=== PATIENT | male | born 1995 | race Hispanic/Latino ===

== ENCOUNTER 2017-04-09 12:01 | Observation (INO) | payer MEDICAID ==
[2017-04-09 12:09] VITALS: BMI 18.2
[2017-04-09 12:12] VITALS: TEMP 98.5
[2017-04-09] MEDS ORDERED: Magnesium Citrate Oral SOL (300 ml) PO ONE (13:33)
[2017-04-09 13:45] LABS: ADD MANUAL DIFF? NO
[2017-04-09 13:49] LABS: BASO # 0.02 K/mm3 (0.0-2.0); BASO % 0.3 % (0.0-3.0); EOS # 0.1 (0.0-0.7); EOS % 1.6 % (1.5-5.0); GRAN # 4.84 (1.4-6.5); GRAN % 70.5 % (50.0-68.0); HEMATOCRIT 44.4 % (42.0-52.0); LYMPH # 1.4 (1.2-3.4); LYMPH % 20.3 % (22.0-35.0); MEAN CELL VOLUME 89.3 fL (80.0-105.0); MEAN CORPUSCULAR HEMOGLOBIN 31.2 pg (25.0-35.0); MEAN CORPUSCULAR HGB CONC 34.9 g/dl (31.0-37.0); MEAN PLATELET VOLUME 11.6 fl (7.0-11.0); MONO # 0.5 (0.1-0.6); MONO % 7.3 % (1.0-6.0); PLATELET COUNT 163 10^3/uL (120.0-450.0); RED CELL DISTRIBUTION WIDTH 12.5 % (11.5-14.5); WHITE BLOOD COUNT 6.9 10^3/ul (4.5-11.0)
--- NOTE | 2017-04-09 13:50 | ED PDOC ---
"Arrival/HPI - General Chief Complaint: GI Problem Time Seen by Provider: 04/09/17 12:01 Historian: Patient - History of Present Illness Narrative History of Present Illness (Text): 04/09/17 12:01 Thaddeus Kelley is a 21 year old male who presents to the emergency department complaining of RLQ pain for 4-5 days. Patient states that his symptoms were relieved with a bowel movement. At present, patient feels much better but is still symptomatic. Patient notes that he does not usually have constipation. Patient denies any nausea, vomiting, or any other complaints. PMD: None Time/Duration: < week Symptom Onset: Gradual Symptom Course: Unchanged Severity Level: Mild Activities at Onset: Rest Context: Home Past Medical History - Provider Review Nursing Documentation Reviewed: Yes - Past History Past History: No Previous - Infectious Disease Hx of Infectious Diseases: None - Tetanus Immunization Tetanus Immunization: Up to Date - Past Medical History Past Medical History: No Previous - Psychiatric Hx Depression: No Hx Emotional Abuse: No Hx Physical Abuse: No Hx Substance Use: No - Past Surgical History Past Surgical History: No Previous - Anesthesia Hx Anesthesia: No - Suicidal Assessment Feels Threatened In Home Enviroment: No Family/Social History - Physician Review Nursing Documentation Reviewed: Yes Smoking Status: Never Smoked Hx Alcohol Use: No Hx Substance Use: No Hx Substance Use Treatment: No Allergies/Home Meds Allergies/Adverse Reactions: Allergies No Known Allergies Allergy (Verified 04/09/17 12:09) Home Medications: Home Meds Medication Instructions Recorded Confirmed No Known Home Med [No Known Home 04/12/14 04/09/17 Med] Physical Exam - Physical Exam Narrative Physical Exam (Text): - Review of Systems Constitutional: Normal. absent: Fatigue, Weight Change, Fevers Eyes: Normal ENT: Normal Respiratory: Normal absent: SOB, Cough, Sputum Cardiovascular: Normal absent: Chest pain, Palpitations, Syncope Gastrointestinal: RLQ pain. absent: Diarrhea, Nausea, Vomiting Genitourinary: Normal. absent: Dysuria, Frequency, Hematuria Musculoskeletal: Normal. absent: Arthralgias, Back Pain, Neck Pain Skin: Normal Neurological: Normal absent: Focal Weakness Endocrine: Normal Hemo/Lymphatic: Normal Psychiatric: Normal - Physical exam Patient appears age appropriate, speaking full sentences without difficulty - Systems Exam Head: Present: Atraumatic, Normocephalic Pupils: Present: PERRL Extraocular Muscles: Present: EOMI Conjunctiva: Present: Normal Mouth: Present: Moist Mucous Membranes Neck: Present: Normal Range of Motion. No: MIDLINE TENDERNESS, Paraspinal Tenderness Respiratory/Chest: Present: Clear to Auscultation, Good Air Exchange. No: Respiratory Distress, Accessory Muscle Use, Tachypneic Cardiovascular: Present: Regular Rate and Rhythm, Normal S1, S2, Peripheral Pulses Present. No: Murmurs Abdomen: Present: Normal Bowel Sounds, No: Tenderness, Peritoneal Signs, Rebound, Guarding, Distention Back: Present: Normal Inspection. No: Midline Tenderness, Paraspinal Tenderness Upper Extremity: Present: Normal Inspection. No: Cyanosis, Edema Lower Extremity: Present: Normal Inspection. No: Edema Neurological: Present: GCS=15, Speech Normal, cranial nerves II through XII fully intact with no cerebellar abnormality, neuro-sensory fully intact. No focal neurological deficits. Skin: Present: Warm, Dry, Normal Color. No: Rashes Lymphatic: Present: OX3, NI, NC Psychiatric: Present: Alert, Oriented x 3, Normal Insight, Normal Concentration Vital Signs Temp Pulse Resp BP Pulse Ox 04/09/17 16:29 55 L 20 126/68 100 04/09/17 16:02 70 18 126/68 100 04/09/17 12:11 98.5 F 72 19 110/73 99 Medical Decision Making - Lab Interpretations Lab Results: 04/09/17 13:30 04/09/17 13:30 Lab Results 04/09/17 13:30: Sodium 141, Potassium 4.4, Chloride 102, Carbon Dioxide 28, Anion Gap 15, BUN 15, Creatinine 0.7, Est GFR ( Amer) > 60, Est GFR (Non- Af Amer) > 60, Random Glucose 88, Calcium 9.8, Total Bilirubin 0.9, AST 26, ALT 35, Alkaline Phosphatase 73, Total Protein 8.3, Albumin 4.6, Globulin 3.7, Albumin/Globulin Ratio 1.2, Lipase 38 04/09/17 13:30: PT 12.0 H, INR 1.11 H, APTT 31.3 H 04/09/17 13:30: WBC 6.9 D, RBC 4.97, Hgb 15.5, Hct 44.4, MCV 89.3, MCH 31.2, MCHC 34.9, RDW 12.5, Plt Count 163, MPV 11.6 H, Gran % 70.5 H, Lymph % (Auto) 20.3 L, [place] % (Auto) 7.3 H, Eos % (Auto) 1.6, Baso % (Auto) 0.3, Gran # 4.84, Lymph # 1.4, [place] # 0.5, Eos # 0.1, Baso # 0.02 - Medication Orders Current Medication Orders: Discontinued Medications Iodixanol (Visipaque 320 Mg/Ml 100 Ml) Confirm Administered Dose 1,000 ml IV .STK-MED ONE Stop: 04/09/17 17:26 Iohexol (Omnipaque 240 (50 Ml)) Confirm Administered Dose 50 ml .ROUTE .STK-MED ONE Stop: 04/09/17 14:08 Iohexol (Omnipaque 350 100 Ml) Confirm Administered Dose 350 mg .ROUTE .STK-MED ONE Stop: 04/09/17 14:08 Magnesium Citrate (Citrate Of Mag) 300 ml PO ONCE ONE Stop: 04/09/17 13:34 Last Admin: 04/09/17 13:42 Dose: 300 ml ED OBSERVATION Discharge: Yes Date of observation admission: 04/09/17 Time of observation admission: 12:00 - Observation admission statement Patient is being placed in observation because:: Impression: 21 year old male complaining of RLQ pain for 4-5 days. Differential Diagnosis include but are not limited to: Constipation vs. Appendicitis vs. Adenitis - Goals of Observation Goals of observation are:: Plan: -- Abdomen and Pelvis CT -- Labs -- Citrate of Magnesium -- Reassess and Disposition Prior Visits: Notes and results from previous visits were reviewed. Patient last seen in ED on 01/08/15 for abnormal EKG that day. Patient was discharged home. - Progress Note Progress Note: 04/09/17 16:46 On reevaluation, patient states he feels better. He states he had a bowel movement. 04/09/17 18:16 On reevaluation, patient reports that she feels much better and would like to be discharged home. Patient's repeat abdominal exam is soft, nontender, non distended with positive bowel sounds in all 4 quadrants and no peritoneal signs. Patient is tolerating PO without any difficulty. Pt states he understands to return to the ER right away for new or worsening symptoms or for inability to f/u with PMD or specialist as instructed. Patient states that he fully agrees with and understands discharge instructions. States that he agrees with the plan and disposition. Verbalized and repeated discharge instructions and plan. I have given the patient opportunity to ask any additional questions. CT Abd Pelvis FINDINGS: Lower thorax: No acute findings. ABDOMEN: Liver: Unremarkable. No mass. Gallbladder and bile ducts: Unremarkable. No calcified stones. No ductal dilation. Pancreas: Unremarkable. No mass. No ductal dilation. Spleen: Unremarkable. No splenomegaly. Adrenals: Unremarkable. No mass. Kidneys and ureters: Unremarkable. No solid mass. No hydronephrosis. Stomach and bowel: Unremarkable. No obstruction. No mucosal thickening. Appendix: The appendix is not definitely identified. No secondary signs of acute appendicitis noted. PELVIS: THADDEUS KELLEY | Preliminary Radiology Report Bladder: Bladder not well distended. Reproductive: Unremarkable as visualized. ABDOMEN and PELVIS: Intraperitoneal space: Unremarkable. No free air. No significant fluid collection. Bones/joints: No acute fracture. No dislocation. Soft tissues: Unremarkable. Vasculature: Unremarkable. No abdominal aortic aneurysm. Lymph nodes: Unremarkable. No enlarged lymph nodes. IMPRESSION: No evidence for acute abnormality. Preliminary interpretation is based on receipt of 1342 image(s). A final report will be issued subsequently. We appreciate the opportunity to be involved in this patient's care. Thank you for allowing us to participate in the care of your patient. Dictated and Authenticated by: Amena Carty MD - Ulisses Statement The provider has reviewed the documentation as recorded by the Ulisses Waggoner Provider Scribe Attestation: All medical record entries made by the Scribe were at my direction and personally dictated by me. I have reviewed the chart and agree that the record accurately reflects my personal performance of the history, physical exam, medical decision making, and the department course for this patient. I have also personally directed, reviewed, and agree with the discharge instructions and disposition. Disposition/Present on Arrival - Present on Arrival Any Indicators Present on Arrival: No History of DVT/PE: No History of Uncontrolled Diabetes: No Urinary Catheter: No History of Decub. Ulcer: No History Surgical Site Infection Following: None - Disposition Have Diagnosis and Disposition been Completed?: Yes Diagnosis: Abdominal pain Disposition: HOME/ ROUTINE Disposition Time: 12:00 Patient Plan: Discharge Condition: GOOD"
[2017-04-09 13:58] LABS: ALB/GLOB RATIO 1.2 (1.1-1.8); ALKALINE PHOSPHATASE 73 U/L (38-133); ALT/SGPT 35 U/L (7-56); AST/SGOT 26 U/L (15-59); BILIRUBIN,TOTAL 0.9 mg/dL (0.2-1.3); BLOOD UREA NITROGEN 15 mg/dL (7-21); CALCIUM 9.8 mg/dL (8.4-10.5); CARBON DIOXIDE 28 mmol/L (21-33); CHLORIDE 102 mmol/L (98-107); GFR AFRICAN-AMERICAN > 60; GLUCOSE,RANDOM 88 mg/dL (70-110); LIPASE 38 U/L (23-300); POTASSIUM 4.4 mmol/L (3.6-5.0); SODIUM 141 mmol/L (132-148); TOTAL PROTEIN 8.3 g/dL (5.8-8.3)
[2017-04-09 13:59] LABS: INR 1.11 (0.93-1.08); PARTIAL THROMBOPLASTIN TIME 31.3 Seconds (23.7-30.8)
[2017-04-09] MEDS ORDERED: Iohexol 240 (50 ml) ONE (14:07)
[2017-04-09] MEDS ORDERED: Iohexol 350 MG/100 ML VIAL ONE (14:07)
[2017-04-09] MEDS ORDERED: Iodixanol 320 MG/ML 100 ML BOTTLE IV ONE (17:25)
--- NOTE | 2017-04-09 18:27 | CT ---
PROCEDURE: CT Abdomen and Pelvis with oral and IV contrast. HISTORY: abd pain COMPARISON: None available. TECHNIQUE: Contiguous axial images of the abdomen and pelvis. Oral and IV contrast was administered. Coronal and Sagittal reformats generated and reviewed. Contrast dose: 100 mL Omnipaque 300 Radiation dose: Total exam DLP = 208.12 mGy-cm. This CT exam was performed using one or more of the following dose reduction techniques: Automated exposure control, adjustment of the mA and/or kV according to patient size, and/or use of iterative reconstruction technique. FINDINGS: LOWER THORAX: No visible consolidation, pleural effusion, or pneumothorax. LIVER: Unremarkable. GALLBLADDER AND BILE DUCTS: Unremarkable. PANCREAS: Unremarkable. SPLEEN: Unremarkable. ADRENALS: Unremarkable. KIDNEYS AND URETERS: The kidneys enhance symmetrically. No hydronephrosis or obstructing renal calculus. BLADDER: Underdistention of the urinary bladder appears otherwise unremarkable. REPRODUCTIVE: Unremarkable. APPENDIX: Not visualized. No secondary signs of acute appendicitis identified. BOWEL: The stomach is nondistended. The bowel loops appear within normal limits of caliber without evidence of intestinal obstruction. PERITONEUM: No significant free fluid. No definite free air. LYMPH NODES: No bulky lymphadenopathy identified. VASCULATURE: No aortic aneurysm. BONES: No acute osseous abnormality is detected. OTHER FINDINGS: None. IMPRESSION: No acute findings. See above. Preliminary impression was provided by virtual radiologic.
[2017-04-09 18:36] VITALS: BP 131/60; PULSE 58; RESP 16; O2SAT 97
== END 2017-04-09 18:18 | disposition home or self-care (01) ==
LOC: ED 12:01 → EROBSV 13:33
PROVIDERS: ADMIT Emergency Medicine; ATTEND Emergency Medicine
DX: R10.9 Unspecified abdominal pain (principal)
CPT/HCPCS: 36415; 74177; 80053; 83690; 85025; 85610; 85730; 99284; G0378; Q9966; Q9967

== ENCOUNTER 2018-02-25 12:13 | Emergency (ER) | payer MEDICAID ==
[2018-02-25 12:13] VITALS: BMI 18.2
[2018-02-25 12:28] VITALS: RESP 16; TEMP 98.7
[2018-02-25] MEDS ORDERED: Tmp-Smz 800 mg-160 mg DS Tab PO STA (13:34)
--- NOTE | 2018-02-25 13:37 | ED PDOC ---
Arrival/HPI - General Chief Complaint: Abnormal Skin Integrity Time Seen by Provider: 02/25/18 13:00 Historian: Patient - History of Present Illness Narrative History of Present Illness (Text): 02/25/18 13:00 This 22 yo male presents to [facility] ED c/o left sided neck boil x 1 month. Patient denies other complains. Time/Duration: > month Context: Home Past Medical History - Provider Review Nursing Documentation Reviewed: Yes - Past History Past History: No Previous - Infectious Disease Hx of Infectious Diseases: None - Tetanus Immunization Tetanus Immunization: Up to Date - Past Medical History Past Medical History: No Previous - Psychiatric Hx Depression: No Hx Emotional Abuse: No Hx Physical Abuse: No Hx Substance Use: No - Past Surgical History Past Surgical History: No Previous - Anesthesia Hx Anesthesia: No - Suicidal Assessment Feels Threatened In Home Enviroment: No Family/Social History - Physician Review Nursing Documentation Reviewed: Yes Family/Social History: Other (noncontributory) Smoking Status: Never Smoked Hx Alcohol Use: No Hx Substance Use: No Hx Substance Use Treatment: No Allergies/Home Meds Allergies/Adverse Reactions: Allergies No Known Allergies Allergy (Verified 04/09/17 12:09) Review of Systems - Review of Systems Constitutional: Normal. absent: Fatigue, Weight Change, Fevers Eyes: Normal ENT: Normal Respiratory: Normal Cardiovascular: Normal Gastrointestinal: Normal Genitourinary Male: Normal Musculoskeletal: Normal Skin: Abscess Neurological: Normal Endocrine: Normal Hemo/Lymphatic: Normal Psychiatric: Normal Physical Exam Vital Signs Temp Pulse Resp BP Pulse Ox 02/25/18 14:17 98.7 F 62 16 112/76 99 02/25/18 12:13 98.7 F 54 L 16 114/75 96 Temperature: Afebrile Blood Pressure: Normal Pulse: Regular Respiratory Rate: Normal Appearance: Positive for: Well-Appearing, Non-Toxic, Comfortable Pain Distress: None Mental Status: Positive for: Alert and Oriented X 3 - Systems Exam Head: Present: Atraumatic, Normocephalic Pupils: Present: PERRL Extroacular Muscles: Present: EOMI Conjunctiva: Present: Normal Mouth: Present: Moist Mucous Membranes Neck: Present: Normal Range of Motion, Trachea Midline, Other ((+) left sided indurated abscess. It measure approx. 1 cm, mobile). No: Meningeal Signs, MIDLINE TENDERNESS, Lymphadenopathy Respiratory/Chest: Present: Clear to Auscultation, Good Air Exchange. No: Respiratory Distress, Accessory Muscle Use Cardiovascular: Present: Regular Rate and Rhythm, Normal S1, S2. No: Murmurs Abdomen: No: Tenderness, Distention, Peritoneal Signs Upper Extremity: Present: Normal Inspection, Normal ROM. No: Cyanosis, Edema Lower Extremity: Present: Normal Inspection, Normal ROM. No: Edema Neurological: Present: GCS=15, CN II-XII Intact, Speech Normal Skin: Present: Warm, Dry, Normal Color. No: Rashes Psychiatric: Present: Alert, Oriented x 3, Normal Insight, Normal Concentration Medical Decision Making ED Course and Treatment: 02/25/18 13:35 Re-evaluation. Patient feels better. Discussed results and plan with patient who expresses understanding. All questions answered and there is agreement with the plan to discharge home with instructions. Patient stable for discharge. Return if symptoms persist or worsen. Patient was recommended to apply warmth compress, and to take ABX. He was recommended to have clinic doctor to the abscess check in 2-3 days. Patient was recommended if abscess persist for more that 5 days, to have it check by the doctor again. Re-evaluation Time: 14:52 Reassessment Condition: Re-examined, Unchanged - Medication Orders Current Medication Orders: Discontinued Medications Trimethoprim/Sulfamethoxazole (Bactrim Ds Tab) 1 tab PO STAT STA PRN Reason: Protocol Stop: 02/25/18 13:35 Last Admin: 02/25/18 13:58 Dose: 1 tab Disposition/Present on Arrival - Present on Arrival Any Indicators Present on Arrival: No History of DVT/PE: No History of Uncontrolled Diabetes: No Urinary Catheter: No History of Decub. Ulcer: No History Surgical Site Infection Following: None - Disposition Have Diagnosis and Disposition been Completed?: Yes Diagnosis: Abscess Disposition: HOME/ ROUTINE Disposition Time: 13:36 Condition: GOOD Discharge Instructions (ExitCare): Boil Additional Instructions: Call private doctor or clinic for follow up visit in 1-2 days. Apply warmth compress 3-4 times a day for 3-5 days. Take medication as instructed. Return to emergency if boil worsen. Also, see you doctor if boil persist for more than 5 days Prescriptions: Sulfamethoxazole/Trimethoprim [Bactrim DS 800 mg-160 mg] 1 tab PO BID #14 tab Referrals: [facility] [Outside] - Follow up with primary [facility] [Outside] - Follow up with primary Forms: [employer] (Hungarian)
[2018-02-25 14:19] VITALS: BP 112/76; PULSE 62; O2SAT 99
== END 2018-02-25 14:19 | disposition home or self-care (01) ==
LOC: ED 12:13
DX: L02.11 Cutaneous abscess of neck (principal)